=== PATIENT | female | born 1995 | race Caucasian/White ===

== ENCOUNTER 2021-01-08 10:00 | Emergency (ER) | payer BC, SELFPAY ==
[2021-01-08 10:12] VITALS: BP 119/74; PULSE 107; RESP 14; TEMP 36.6; O2SAT 98
--- NOTE | 2021-01-08 11:09 | PC.NURSE ---
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
== END 2021-01-08 10:52 | disposition left against medical advice (07) ==
PROVIDERS: Emergency Provider Nurse Practitioner
DX: Z53.21 Procedure and treatment not carried out due to patient leaving prior to being seen by health care provider (principal)
CPT/HCPCS: 87081; 87880; 99199

== ENCOUNTER 2022-04-24 11:23 | Emergency (ER) | payer BC, SELFPAY ==
[2022-04-24 11:28] VITALS: BP 152/92; PULSE 101; RESP 16; TEMP 37.1; O2SAT 100
--- NOTE | 2022-04-24 12:43 | ED.URI ---
HPI - URI/Sore Throat General Chief Complaint: Upper Respiratory Infection Stated Complaint: sore throat Time Seen by Provider: 04/24/22 12:43 Source: patient and RN notes reviewed Mode of arrival: ambulatory Limitations: no limitations History of Present Illness HPI Narrative: 26-year-old female presents concern for sore throat, nausea vomiting, body aches, chills, sweats this started last night. She denies taking any [id number] medications for her symptoms. She works in healthcare MD elicited complaint: sore throat Related Data Home Medications Medication Instructions Recorded Confirmed buspirone 5 mg tablet 5 mg PO TID 01/08/21 01/08/21 divalproex 250 mg tablet,extended 750 mg PO DAILY 01/08/21 01/08/21 release 24 hr nadolol 20 mg tablet 10 mg PO DAILY 01/08/21 01/08/21 trazodone 50 mg tablet 50 mg PO HS 01/08/21 01/08/21 Allergies Allergy/AdvReac Type Severity Reaction Status Date / Time No Known Allergies Allergy Verified 01/08/21 10:22 Review of Systems Review of Systems: CONSTITUTIONAL: Reports malaise, chills, sweats. Denies fever. EYES: Denies visual changes, redness, or discharge. ENT: Denies rhinorrhea, congestion, sinus pain, otalgia. Reports sore throat. CARDIOVASCULAR: Denies chest pain, palpitations, or edema. RESPIRATORY: Denies cough. Denies dyspnea. GASTROINTESTINAL: Denies abdominal pain, diarrhea. Reports nausea and vomiting SKIN: Denies rash or itching. MUSCULOSKELETAL: Reports myalgia. NEUROLOGIC: Denies headache. All systems reviewed & are unremarkable except as noted in HPI and below PMFSH Comments At time of signature, agree with nursing past medical, surgical, social and family history. There is no relevant family history pertinent to the presenting complaint Exam Narrative: GENERAL: Well-appearing, well-nourished, and in no acute distress. HEAD: Normocephalic EYES: PERRLA, conjunctivae clear ENT: Nares clear, no discharge. Mucous membranes moist. TM pearly ureña with sharp light reflex bilaterally; no tragal tenderness. Oropharynx erythematous without lesions. Tonsils not enlarged and without exudate, no drooling, no hoarseness, no trismus, uvula midline. NECK: Supple. No lymphadenopathy CHEST: Clear to auscultation, breath sounds equal. No wheezing, rhonchi, rales, or stridor. No respiratory distress, speaks in full sentences. HEART: Regular rate and rhythm. No murmur heard. SKIN: Warm, dry, no rash. NEURO: Alert and oriented x3. PSYCH: Normal mood and affect Course Course Emergency Course: Patient is aware of diagnosis, understands and agrees to treatment plan. Anticipatory guidance given. Patient agrees to follow-up as directed and is aware of reasons to seek care at the emergency department. Portions of this record may have been created with voice recognition software Level of Care: Express Care Visit Vital Signs Vital signs: Vital Signs Temperature 98.8 F 04/24/22 11:28 Pulse Rate 101 H 04/24/22 11:28 Respiratory Rate 16 04/24/22 11:28 Blood Pressure 152/92 H 04/24/22 11:28 Pulse Oximetry 100 04/24/22 11:28 Oxygen Delivery Room Air 04/24/22 11:28 Temperature 98.8 F 04/24/22 11:28 Pulse Rate 101 H 04/24/22 11:28 Respiratory Rate 16 04/24/22 11:28 Blood Pressure 152/92 H 04/24/22 11:28 Pulse Oximetry 100 04/24/22 11:28 Oxygen Delivery Room Air 04/24/22 11:28 Reviewed. MDM - URI/Sore Throat MDM Narrative Medical decision making narrative: Differential diagnosis considered: Marti virus, strep pharyngitis, allergic rhinitis, upper respiratory tract infection, sinusitis, rhinosinusitis, nasopharyngitis. viral pharyngitis, otitis media, otitis externa, pneumonia, bronchitis, viral cough syndrome, viral syndrome, and influenza. Exam findings show no acute concerns or changes; patient is non-toxic appearing and is in no distress. Patient is appropriate for outpatient treatment and follow-up. Lab Data Attestation: I re
== END 2022-04-24 13:13 | disposition home or self-care (01) ==
PROVIDERS: Emergency Provider Nurse Practitioner
DX: J11.1 Influenza due to unidentified influenza virus with other respiratory manifestations (principal); Z20.822 Contact with and (suspected) exposure to COVID-19; F41.9 Anxiety disorder, unspecified
CPT/HCPCS: 87081; 87426; 87804; 87880; 99213; C9803; G0463